=== PATIENT | female | born 1970 | race American Indian/Alaskan Native ===

== ENCOUNTER 2020-03-10 20:37 | Emergency (ER) | payer MEDICARE ==
[2020-03-10] MEDS ORDERED: diphenhydrAMINE 50 MG/ML VIAL IV ONE (21:08)
[2020-03-10] MEDS ORDERED: FAMOTIDINE 20 MG/2 ML INJ IV ONE (21:08)
[2020-03-10] MEDS ORDERED: methylPREDNISolone Sod Succinate 125 MG/2 ML INJ IV ONE (21:08)
[2020-03-10] MEDS ORDERED: ACETAMINOPHEN 325 MG TAB PO ONE (21:09)
--- NOTE | 2020-03-10 21:10 | Emergency Department Report ---
ED General Adult HPI - General Chief complaint: Allergic Reaction Stated complaint: ALLERGIC REACTION Time Seen by Provider: 03/10/20 20:46 Source: patient, EMS ( EMS documentation not available at time of chart dictation ), RN notes reviewed Mode of arrival: Stretcher Limitations: Physical Limitation - History of Present Illness Initial comments: During the entire history and physical examination, I am assembler chassis and escorted by nurse Key Mcguire Patient is an obese 50-year-old female, with a history of gastric sleeve, D&C, partial hysterectomy, lower extremity edema, currently visiting from [place]. She was started on Bactrim antibiotic, and took her first dose today, for "urinary tract infection." She reports that 1 week ago, in [place], she was seen for complaints of foul-smelling urine and dysuria, present for 1 month, and the aforementioned prescription was just called in today. She took her first dose of Bactrim today. Shortly thereafter, developed diffuse body pruritus. This is associated with cough, and chest wall tightness. The patient denies vomiting, diaphoresis, surgery, oral contraceptive use, and new or different leg pain and/or leg swelling. Patient is diffusely pruritic, denies sore throat, and denies vaginal foreign body or tampon. To the best of her recollection, she has not had Bactrim in the past. -: Gradual, hour(s) Location: chest, back, left, right, upper extremity, lower extremity Radiation: non-radiation Quality: other (Diffuse body itching is described as itching like, almost pruritic.The patient endorses left-sided chest wall pain with coughing, on the superior aspect of the breast.) Consistency: constant Improves with: other (Chest wall discomfort decreases with rest, and increases with palpation and range of motion.) Associated Symptoms: other (Patient denies fever, and confirmed coronavirus exposure) - Related Data Previous Rx's Medication Instructions Recorded Last Taken Type EPINEPHrine [Epipen 2-Joesph] 0.3 mg IM DAILY PRN #2 ml 03/10/20 Unknown Rx Famotidine [Pepcid] 20 mg PO BID #10 tablet 03/10/20 Unknown Rx Magnesium Oxide [Magnesium] 400 mg PO QDAY #14 capsule 03/10/20 Unknown Rx diphenhydrAMINE [Benadryl] 50 mg PO Q8HR PRN #20 capsule 03/10/20 Unknown Rx Allergies Allergy/AdvReac Type Severity Reaction Status Date / Time azithromycin Allergy Itching Verified 03/10/20 20:54 [From Zithromax Z-Joesph] metronidazole [From Flagyl] Allergy Itching Verified 03/10/20 20:54 sulfamethoxazole Allergy Itching Verified 03/10/20 23:51 [From Bactrim] trimethoprim [From Bactrim] Allergy Itching Verified 03/10/20 23:51 ED Review of Systems ROS: Stated complaint: ALLERGIC REACTION Other details as noted in HPI Constitutional: denies: fever Eyes: denies: eye discharge ENT: denies: congestion Respiratory: cough. denies: wheezing Cardiovascular: chest pain. denies: syncope Gastrointestinal: denies: vomiting Genitourinary: as per HPI, dysuria Musculoskeletal: arthralgia, myalgia Skin: lesions, pruritus Psychiatric: as per HPI, anxiety Hematological/Lymphatic: as per HPI. denies: easy bleeding ED Past Medical Hx - Past Medical History Previous Medical History?: No Additional medical history: previously cervical cancer 2007 - Surgical History Past Surgical History?: Yes Additional Surgical History: Gastric sleeve-2013. partial hysterectomy- 2007. d&C - Social History Smoking Status: Former Smoker - Medications Home Medications: Home Medications Medication Instructions Recorded Confirmed Last Taken Type EPINEPHrine [Epipen 2-Joesph] 0.3 mg IM DAILY PRN #2 ml 03/10/20 Unknown Rx Famotidine [Pepcid] 20 mg PO BID #10 tablet 03/10/20 Unknown Rx Magnesium Oxide [Magnesium] 400 mg PO QDAY #14 capsule 03/10/20 Unknown Rx diphenhydrAMINE [Benadryl] 50 mg PO Q8HR PRN #20 capsule 03/10/20 Unknown Rx ED Physical Exam - General Limitations: Physical Limitation General appearance: alert, anxious, in distress, obese - Head Head exam: Present: atraumatic, normocephalic, other (Patient speaking in full sentences, with no stridor or dysphonia.) - Eye Eye exam: Present: normal appearance, EOMI. Absent: nystagmus - ENT ENT exam: Present: normal exam, normal orophraynx (The uvula is midline, with no elevation of the base of the tongue), mucous membranes moist, normal external ear exam - Neck Neck exam: Present: normal inspection, full ROM. Absent: tenderness, meningismus - Respiratory Respiratory exam: Present: normal lung sounds bilaterally, chest wall tenderness, other (There is no breast tenderness. Chaperoned by nurse Turbine Assembler Mynor). Absent: respiratory distress, wheezes, rales, rhonchi, stridor - Cardiovascular Cardiovascular Exam: Present: regular rate, normal rhythm, normal heart sounds. Absent: bradycardia, tachycardia, irregular rhythm, systolic murmur, diastolic murmur, rubs, gallop - GI/Abdominal GI/Abdominal exam: Present: soft. Absent: distended, tenderness, guarding, rebound, rigid, pulsatile mass - Extremities Exam Extremities exam: Present: normal inspection, full ROM, pedal edema (1+ edema noted in the bilateral lower extremities, chronic as per patient), other (2+ pulses noted in the bilateral upper and lower extremities. There is no palpable cord. negative Homans sign. Muscular compartments are soft. The pelvis is stable.). Absent: calf tenderness - Back Exam Back exam: Present: normal inspection, full ROM. Absent: tenderness, CVA tenderness (R), CVA tenderness (L), paraspinal tenderness, vertebral tenderness - Neurological Exam Neurological exam: Present: alert, oriented X3, normal gait, other (No facial droop. Tongue midline. Extraocular movements intact bilaterally. Facial sensation intact to light touch in V1, V2, V3 distribution bilaterally. 5 and a 5 strength in 4 extremities. Sensation intact to light touch in 4 extremities.). Absent: motor sensory deficit - Psychiatric Psychiatric exam: Present: anxious - Skin Skin exam: Present: warm (Linear scratch spears noted without evidence of redness, pus or streaking), intact. Absent: cyanosis, diaphoretic, vesicles, petechiae, pallor, abrasion, ecchymosis ED Course Vital Signs 03/10/20 03/10/20 03/10/20 20:44 20:46 22:07 Temperature 97.4 F L Pulse Rate 109 H 79 Respiratory 18 22 Rate Blood Pressure 96/53 96/53 O2 Sat by Pulse 96 96 98 Oximetry 03/10/20 03/10/20 03/10/20 22:15 22:31 22:45 Temperature Pulse Rate 81 79 67 Respiratory 21 21 20 Rate Blood Pressure 112/64 112/64 112/64 O2 Sat by Pulse 98 98 98 Oximetry 0403/10/20 03/10/20 23:01 23:15 23:31 Temperature Pulse Rate 73 67 69 Respiratory 22 19 20 Rate Blood Pressure 112/64 112/64 112/64 O2 Sat by Pulse 100 98 95 Oximetry 03/10/20 23:45 Temperature Pulse Rate 72 Respiratory 18 Rate Blood Pressure 112/64 O2 Sat by Pulse 98 Oximetry - Reevaluation(s) Reevaluation #1: 03/10/20 22:22 Differential diagnosis, including but not limited to: Medication side effect, allergic reaction, costochondritis Urinary tract infection Assessment and plan: 50-year-old female with a primary complaint of diffuse body pruritus, which started after taking Bactrim for the first time, this is associated with superimposed chest wall pain, secondary to coughing which is reproducible. She is not currently tachycardic, tachypneic or hypoxic, I find her to be low risk by Wells criteria and I also find the patient to be perc negative This is unlikely to be an atypical presentation of acute coronary syndrome, troponin negative x1, EKG fairly unremarkable, patient low risk for major adverse cardiac event as per heart score. Urinalysis pending, repeat EKG, repeat troponin pending. Incidental hypomagnesemia reviewed and appreciated, we will treat this. Reevaluation #2: 03/10/20 23:32 Resting comfortably, and in no acute distress. Troponin negative x2. Urinalysis not consistent with urinary tract infection. EKG unchanged x2. Vital signs improved. Patient sleeping comfortably in her stretcher, and in no acute distress. She endorses improvement in her subjective pruritus. Patient suitable for outpatient management at this time, she can discontinue her antibiotics, I do not see an indication for antibiotic therapy at this time, she can follow-up with an outpatient primary care doctor or dynamiter for her chest wall pain, return precautions are reviewed. ED Medical Decision Making - Lab Data Result diagrams: 03/10/20 21:34 03/10/20 21:34 Vital Signs 03/10/20 03/10/20 03/10/20 20:44 20:46 22:07 Temperature 97.4 F L Pulse Rate 109 H 79 Respiratory 18 22 Rate Blood Pressure 96/53 96/53 O2 Sat by Pulse 96 96 98 Oximetry 03/10/20 22:15 Temperature Pulse Rate 81 Respiratory 21 Rate Blood Pressure 112/64 O2 Sat by Pulse 98 Oximetry Lab Results 03/10/20 03/10/20 03/10/20 Range/Units 21:34 21:34 21:34 WBC 10.5 (4.5-11.0) K/mm3 RBC 4.74 (3.65-5.03) M/mm3 Hgb 13.9 (10.1-14.3) gm/dl Hct 41.9 (30.3-42.9) % MCV 88 (79-97) fl MCH 29 (28-32) pg MCHC 33 (30-34) % RDW 15.4 H (13.2-15.2) % Plt Count 344 (140-440) K/mm3 PT 13.9 (12.2-14.9) Sec. INR 1.06 (0.87-1.13) Sodium 141 (137-145) mmol/L Potassium 3.7 (3.6-5.0) mmol/L Chloride 106.6 (98-107) mmol/L Carbon Dioxide 22 (22-30) mmol/L Anion Gap 16 mmol/L BUN 20 H (7-17) mg/dL Creatinine 0.9 (0.7-1.2) mg/dL Estimated GFR > 60 ml/min BUN/Creatinine Ratio 22 % Glucose 177 H (65-100) mg/dL Calcium 9.2 (8.4-10.2) mg/dL Magnesium 1.50 L (1.7-2.3) mg/dL Total Bilirubin 0.20 (0.1-1.2) mg/dL AST 20 (5-40) units/L ALT 8 (7-56) units/L Alkaline Phosphatase 75 (35-129) units/L Total Creatine Kinase 225 H (30-135) units/L Troponin T < 0.010 (0.00-0.029) ng/mL Total Protein 7.0 (6.3-8.2) g/dL Albumin 3.4 L (3.9-5) g/dL Albumin/Globulin Ratio 0.9 % - EKG Data -: EKG Interpreted by Me - EKG Data 03/10/20 22:23 Sinus rhythm, 85 bpm, normal axis, QTC 451 ms, there is high left ventricular voltage, minimal motion artifact, abnormal EKG, no prior for comparison, not a STEMI. - Radiology Data Radiology results: report reviewed, image reviewed X-ray of the chest is negative for acute disease Critical care attestation.: If time is entered above; I have spent that time in minutes in the direct care of this critically ill patient, excluding procedure time. ED Disposition Clinical Impression: Generalized pruritus, Chest wall pain, Dysuria, Hypomagnesemia Disposition: DC-01 TO HOME OR SELFCARE Is pt being admited?: No Does the pt Need Aspirin: No Condition: Stable Additional Instructions: Recommend that patient discontinue Bactrim antibiotic, and for future reference, consider herself allergic to Bactrim and its components. Recommend following up with a primary care doctor or gifted program teacher within the next 4 weeks to determine what specific components of Bactrim antibiotic patient is allergic/intolerant to. Cultures were sent today, and results will be sent today, Results will be available in the next 3 to 5 days, please have a primary care doctor contact the medical records department to obtain culture results. Rest, avoid heavy lifting, and avoid strenuous physical activity. Patient may take [id number] Tylenol, 650 mg by mouth, every 4-6 hours, as needed for pain. Patient should take the Benadryl as needed for itching, Pepcid as directed, and use the epinephrine pen only if she develops inability to speak, inability to breathe, or sensation of throat closing up. If any of these symptoms develop, use the epinephrine pen, and contact emergency medical services right away, and present to the emergency room. Return to the emergency room right away with new, worsened or different symptoms, or symptoms not present on the initial emergency room evaluation. Take the magnesium supplementation as directed. Follow-up with your primary care doctor or dynamiter within the next 3 days for complaint of chest wall pain. Follow-up with your primary care doctor within the next 10 days for repeat magnesium check, and repeat checkup and evaluation. Prescriptions: diphenhydrAMINE [Benadryl] 50 mg PO Q8HR PRN #20 capsule PRN Reason: Allergic Reaction EPINEPHrine [Epipen 2-Joesph] 0.3 mg IM DAILY PRN #2 ml PRN Reason: Allergic Reaction Magnesium Oxide [Magnesium] 400 mg PO QDAY #14 capsule Famotidine [Pepcid] 20 mg PO BID #10 tablet Referrals: BRENDA CASTILLO MD [Staff Physician] - 3-5 Days (cardiology) ALINA HARDING MD [Staff Physician] - 7-10 days (primary care)
[2020-03-10 21:47] LABS: Hematocrit 41.9 % (30.3-42.9); Hemoglobin 13.9 gm/dl (10.1-14.3); Mean Corpuscular HGB Conc 33 % (30-34); Mean Corpuscular Volume 88 fl (79-97); Platelet Count 344 K/mm3 (140-440); Red Blood Count 4.74 M/mm3 (3.65-5.03); Red Cell Distribution Width 15.4 % (13.2-15.2)
[2020-03-10 21:59] LABS: INR 1.06 (0.87-1.13)
[2020-03-10 22:02] LABS: Alanine Aminotransferase 8 units/L (7-56); Albumin 3.4 g/dL (3.9-5); BUN/Creatinine Ratio 22; Blood Urea Nitrogen 20 mg/dL (7-17); Calcium 9.2 mg/dL (8.4-10.2); Hemolysis Index 7
[2020-03-10] MEDS ORDERED: MAGNESIUM OXIDE 400 MG TAB PO STA (22:12)
--- NOTE | 2020-03-10 22:16 | XRay Report ---
CHEST 1 VIEW INDICATION / CLINICAL INFORMATION: cough cp. COMPARISON: None available. FINDINGS: SUPPORT DEVICES: None. HEART / MEDIASTINUM: No significant abnormality. LUNGS / PLEURA: No significant pulmonary or pleural abnormality. No pneumothorax. ADDITIONAL FINDINGS: No significant additional findings. IMPRESSION: 1. No acute findings. Signer Name: Oz Enriquez MD Signed: 03/10/2020 10:12 PM Workstation Name: [id number]
[2020-03-10 22:17] VITALS: BP 112/64
[2020-03-10 22:29] LABS: Bilirubin,Urine NEG (Negative); Blood,Urine NEG (Negative); Color,Urine Yellow (Yellow); Mucus,Urine 2+ /HPF; Protein,Urine <15 mg/dL mg/dL (Negative)
== END 2020-03-11 00:03 | disposition home or self-care (01) ==
LOC: ED 20:37
DX: L29.9 Pruritus, unspecified (principal); R07.89 Other chest pain; R30.0 Dysuria; E83.42 Hypomagnesemia
CPT/HCPCS: 36415; 71045; 80053; 81001; 82550; 83735; 84484; 85027; 85610; 87086; 93005; 96374; 96375; 99284; J1200; J2930